=== PATIENT | female | born 1965 | race Caucasian/White ===

== ENCOUNTER 2017-07-17 06:34 | Inpatient (IN) | payer OTHER ==
[~2017-07-17] VITALS: Ht 170.2 cm; Wt 66.2 kg
[2017-07-17] MEDS ORDERED: FENTANYL PF 250 MCG/5ML ONE (07:30)
[2017-07-17] MEDS ORDERED: MIDAZOLAM 1 MG/ML, 2ML ONE (07:30)
[2017-07-17] MEDS ORDERED: PROPOFOL 50 ML ONE ×2 (07:32→10:13)
[2017-07-17] MEDS ORDERED: LIDOCAINE-MPF 2% ,5ML ONE (07:32)
[2017-07-17] MEDS ORDERED: PROPOFOL 10 MG/ML, 20ML ONE (07:32)
[2017-07-17] MEDS ORDERED: LACTATED RINGERS 1,000 ML IV SCH (07:44)
[2017-07-17 07:46] VITALS: BP 106/71
[2017-07-17] MEDS ORDERED: BENZ200C48 PO (07:46)
[2017-07-17] MEDS ORDERED: TRINTELLIX PO (07:46)
[2017-07-17] MEDS ORDERED: ALPR1TAB6 PO (07:46)
[2017-07-17] MEDS ORDERED: HYDR-3245 PO (07:46)
[2017-07-17] MEDS ORDERED: LIDOCAINE/PF 0.5% ,50ML ONE (08:10)
[2017-07-17] MEDS ORDERED: THROMBIN 5,000 UNIT VIAL TP ONE (08:10)
[2017-07-17] MEDS ORDERED: VANCOMYCIN 1,000 MG ONE (08:11)
[2017-07-17] MEDS ORDERED: ACETAMINOPHEN 500 MG TABLET ONE (08:19)
[2017-07-17] MEDS ORDERED: ACETAMINOPHEN 500 MG TABLET PO ONE (08:30)
[2017-07-17] MEDS ORDERED: GABAPENTIN 300 MG CAPSULE PO ONE (08:30)
[2017-07-17] MEDS ORDERED: KETAMINE 10 MG/ML, 20ML ONE (09:02)
[2017-07-17] MEDS ORDERED: EPHEDRINE 50 MG/ML, 1ML ONE (09:40)
[2017-07-17] MEDS ORDERED: PHENYLEPHRINE 10 MG/ML ONE (09:41)
[2017-07-17] MEDS ORDERED: EPINEPHRINE 1 MG/ML, 1ML INFIL ONE (10:14)
[2017-07-17] MEDS ORDERED: HYDROmorphone 2 MG/ML, 1ML ONE (11:12)
[2017-07-17] MEDS ORDERED: hydrALAzine 20 MG/ML, 1ML IV PRN (12:00)
[2017-07-17] MEDS ORDERED: METOCLOPRAMIDE 5 MG/ML, 2ML IV PRN (12:00)
[2017-07-17] MEDS ORDERED: ONDANSETRON 2MG/ML, 2ML IVPush PRN (12:00)
[2017-07-17] MEDS ORDERED: ALBUTEROL/IPRATROPIUM 2.5MG/0.5MG, 3 ML NPPB PRN (12:00)
[2017-07-17] MEDS ORDERED: LABETALOL 5MG/ML, 20ML IV PRN ×2 (12:00→15:00)
[2017-07-17] MEDS ORDERED: MIDAZOLAM 1 MG/ML, 2ML IV PRN (12:00)
[2017-07-17] MEDS ORDERED: LORazepam 2 MG/ML, 1ML IVPush PRN (12:00)
[2017-07-17] MEDS ORDERED: FENTANYL PF 100 MCG/2ML IV PRN (12:00)
[2017-07-17] MEDS ORDERED: HYDROmorphone 1 MG/ML, 1ML IV PRN (12:00)
[2017-07-17] MEDS ORDERED: PROMETHAZINE 25 MG/ML, 1ML IV PRN (12:00)
[2017-07-17] MEDS ORDERED: DIAZEPAM 5 MG/ML, 2ML IVPush PRN (12:00)
[2017-07-17] MEDS ORDERED: OXYcodone 5 MG/5 ML ORAL.SOL UDC PO PRN (12:00)
[2017-07-17] MEDS ORDERED: PROMETHAZINE 25 MG/ML, 1ML IM PRN (13:30)
[2017-07-17] MEDS ORDERED: BISACODYL 10 MG SUPP PR PRN (13:30)
[2017-07-17] MEDS ORDERED: HYDROcodone/APAP 5/325 TABLET PO PRN (13:30)
[2017-07-17] MEDS ORDERED: LABETALOL 5MG/ML, 20ML IV SCH (13:30)
[2017-07-17] MEDS ORDERED: ONDANSETRON 2MG/ML, 2ML IV PRN (13:30)
[2017-07-17] MEDS ORDERED: morphine SULFATE 10 MG/ML, 1ML IV PRN (13:30)
[2017-07-17] MEDS ORDERED: MAGNESIUM HYDROXIDE 8%, 30ML UDC PO PRN (13:30)
[2017-07-17] MEDS ORDERED: METHOCARBAMOL 1,000 MG in DEXTROSE 5% 100 ML IV ONE (14:00)
[2017-07-17 14:11] VITALS: BP 111/73
[2017-07-17] MEDS: D5%-0.9% NACL+KCL 20MEQ 1,000 ML IV SCH (16:09)
[2017-07-17] MEDS ORDERED: CEFAZOLIN 1,000 MG ONE (16:18)
[2017-07-17] MEDS ORDERED: ONDANSETRON 2MG/ML, 2ML ONE (16:18)
[2017-07-17] MEDS ORDERED: DEXAMETHASONE 4 MG/ML, 5ML ONE (16:18)
[2017-07-17] MEDS ORDERED: SUCCINYLCHOLINE 20 MG/ML, 10ML ONE (16:18)
[2017-07-17] MEDS: CEFAZOLIN PMX 1GM/50ML 50 ML IVPB SCH (17:32)
[2017-07-17] MEDS: HYDROcodone/APAP 10/325 MG TABLET PO PRN ×2 (17:41→18:30)
[2017-07-17 19:07] VITALS: BP 97/60
[2017-07-17] MEDS: METHOCARBAMOL 750 MG in DEXTROSE 5% 100 ML IV SCH (20:30)
[2017-07-18] MEDS: HYDROcodone/APAP 10/325 MG TABLET PO PRN ×3 (01:03→09:41)
[2017-07-18] MEDS: CEFAZOLIN PMX 1GM/50ML 50 ML IVPB SCH (01:05)
[2017-07-18 01:07] VITALS: BP 101/60
[2017-07-18] MEDS: D5%-0.9% NACL+KCL 20MEQ 1,000 ML IV SCH (03:30)
[2017-07-18] MEDS: METHOCARBAMOL 750 MG in DEXTROSE 5% 100 ML IV SCH (05:09)
[2017-07-18 08:12] VITALS: BP 96/58
[2017-07-18] MEDS ORDERED: SENNA/DOCUSATE TABLET PO SCH (09:00)
[2017-07-18] MEDS ORDERED: VORTIOXETINE 20 MG PO SCH (09:00)
[2017-07-18] MEDS ORDERED: MAGNESIUM HYDROXIDE 8%, 30ML UDC PO ONE (10:00)
[2017-07-18] MEDS ORDERED: METH750T87 PO (10:41)
[2017-07-18] MEDS ORDERED: CEPH-368 PO (10:41)
[2017-07-19] MEDS ORDERED: METHOCARBAMOL 750 MG TABLET PO SCH (22:00)
== END 2017-07-18 10:25 | disposition home or self-care (01) | DRG 472 ==
LOC: ORIP 06:34 → 4NOR 13:05
PROVIDERS: ADMIT Orthopaedic Surgery Orthopaedic Surgery of the Spine; ATTEND Orthopaedic Surgery Orthopaedic Surgery of the Spine
PROC: 0RG10A0 Fusion of Cervical Vertebral Joint with Interbody Fusion Device, Anterior Approach, Anterior Column, Open Approach (ICD-10-PCS; 2017-07-17)
PROC: 4A11X4G Monitoring of Peripheral Nervous Electrical Activity, Intraoperative, External Approach (ICD-10-PCS; 2017-07-17)
PROC: 0RB30ZZ Excision of Cervical Vertebral Disc, Open Approach (ICD-10-PCS; principal; 2017-07-17 08:45)
DX: M48.02 Spinal stenosis, cervical region (principal); M47.12 Other spondylosis with myelopathy, cervical region; F41.9 Anxiety disorder, unspecified; F17.210 Nicotine dependence, cigarettes, uncomplicated; Z88.0 Allergy status to penicillin; Z88.8 Allergy status to other drugs, medicaments and biological substances; Z87.81 Personal history of (healed) traumatic fracture; Z90.710 Acquired absence of both cervix and uterus
CPT/HCPCS: 72040; 95938; 95941; C1713; J0171; J0690; J1100; J1170; J2001; J2250; J2405; J2704; J3010; J3370; J3490; C1762; J0330; J2370; J2800; J3480